=== PATIENT | male | born 1975 | race Caucasian/White ===

== ENCOUNTER 2016-11-02 13:06 | Outpatient (CLI) | payer OTHER ==
--- NOTE | 2016-11-02 15:53 | MRI Report ---
EXAM: MRI CERVICAL SPINE WITHOUT CONTRAST EXAM DATE: 11/02/2016 01:41 PM. CLINICAL HISTORY: 41-year-old man with back pain and upper radicular symptoms. COMPARISONS: 01/22/2015. TECHNIQUE: Multiplanar, multisequence T1-weighted and fluid-sensitive sequences of the cervical spine without contrast. Other: None. FINDINGS: Post surgical: Status post ACDF of C5-C6, new compared to the 2015 MRI. Artifact from interbody cage extends into the central canal. Cage migration into the central canal cannot be excluded. Neurologic Structures: Cervical spinal cord is normal in caliber without definite signal abnormalitie s, but hardware at C5-C6 obscures local evaluation. Alignment: Normal. No scoliosis or spondylolisthesis. Bone Marrow: No gross fractures or bone lesions. No marrow edema. Interspace Levels/Facets: C2-C3: Small disk bulge results in mild narrowing of the central canal, unchanged. No significant mat ral foraminal narrowing. C3-C4: Unremarkable. C4-C5: Unremarkable. C5-C6: Interbody cage is present, new compared to prior exam. Artifact limits evaluation of the centr al canal. No definite neural foraminal narrowing. C6-C7: Small broad-based disk bulge results in mild narrowing of the central canal. Uncovertebral mart nt hypertrophy results in at least mild narrowing of the right neural foramen, but artifact from francisco cent hardware limits evaluation. C7-T1: Unremarkable. Musculature: Normal. No edema or fatty atrophy. Other: The paravertebral and prevertebral soft tissues are normal. IMPRESSION: 1. Status post ACDF of C5-C6, new compared to the 01/22/2015 exam. Artifact from interbody cage exten ds into the central canal. Cage migration and central canal narrowing cannot be excluded. Consider CT to evaluate hardware. 2. Degenerative changes result in the following: - C2-C3: Mild narrowing of the central canal, unchanged from the prior exam. - C6-C7: Mild narrowing of the central canal. At least mild narrowing of the right neural foramen, st able or progressed. [facility] Referring Provider Line: [phone] SITE ID: [id number]
--- NOTE | 2016-11-02 16:08 | MRI Report ---
EXAM: MRI THORACIC SPINE WITHOUT CONTRAST EXAM DATE: 11/02/2016 02:33 PM. CLINICAL HISTORY: 41-year-old man with back pain that radiates up and down his spine. COMPARISONS: 01/22/2015. TECHNIQUE: Multiplanar, multisequence T1-weighted and fluid-sensitive sequences of the thoracic spine from C7 to L1 without contrast. Other: None. FINDINGS: Spinal Cord: Thoracic spinal cord is normal in caliber without definite signal abnormality. Alignment: Normal. No scoliosis or spondylolisthesis. Bone Marrow: No gross fractures or bone lesion. No bone marrow edema. Disk spaces, central canal, and neural foramina: Disk spaces are preserved. No significant disk herni ations. Central canal is widely patent. No significant neural foraminal narrowing. Musculature: Normal. No edema or fatty atrophy. Other: Limited evaluation of the chest is unremarkable. IMPRESSION: 1. Normal MRI of the thoracic spine. No significant central canal or neural foraminal narrowing. [facility] Referring Provider Line: [phone] SITE ID: [id number]
== END 2016-11-02 13:07 | disposition home or self-care (01) ==
LOC: DI 13:06
PROVIDERS: ATTEND Nurse Practitioner Family
DX: M47.892 Other spondylosis, cervical region (principal); M50.31 Other cervical disc degeneration, high cervical region
CPT/HCPCS: 72141; 72146

== ENCOUNTER 2017-02-21 06:56 | Emergency (ER) | payer OTHER ==
[2017-02-21] MEDS ORDERED: MAG HYDROX/AL HYDROX/SIMETH 30 ML UDC PO STA (07:27)
[2017-02-21] MEDS ORDERED: PHENobarb/HYOSCY/ATROPINE/SCOP 5 ML SYRINGE PO STA (07:27)
[2017-02-21] MEDS ORDERED: LIDOCAINE VISCOUS 2% 15 ML UDC MM STA (07:27)
--- NOTE | 2017-02-21 07:29 | ED Physician Documentation ---
PD HPI CHEST PAIN - Stated complaint Stated Complaint: CHEST/LT ARM PX 2ND TO NECK INJECTION - Chief complaint Chief Complaint: Cardiac - History obtained from History obtained from: Patient - History of Present Illness Timing - onset: Yesterday Timing - onset during: Light activity Timing - details: Still present, Waxing and waning Pain level max: 8 Pain level now: 6 Quality: Sharp Location: Substernal, Left chest Radiation: Left upper extremity Associated symptoms: Shortness of air. No: Diaphoresis, Nausea, Vomiting Similar symptoms before: Has not had sx before Recently seen: Clinic (His pain started yesterday shortly after receiving a cortisone injection in his cervical spine.) - Additional information Additional information: The patient is a 41-year-old active [employer] [place] male who presents with sharp substernal chest pain that started yesterday after getting a cortisone injection in his cervical spine for chronic neck pain. The pain intermittently radiates to his left upper extremity. It has been waxing and waning since onset yesterday. At its worst he rates it 8 out of 10 in severity, and currently rates it 6 out of 10 in severity. He reports associated shortness of breath, but denies nausea, vomiting, or diaphoresis. He denies history of similar symptoms in the past. Cardiac risk factors are positive for cigarette smoking, negative for diabetes, hypertension, hyperlipidemia, or family history of early [place]. On further review of systems the patient reports mild headache, but denies fever, cough, or leg pain. Past medical history significant for chronic lower back and neck pain. He is status post cervical discectomy. Review of Systems Constitutional: denies: Fever, Fatigue Nose: denies: Congestion Throat: denies: Sore throat Cardiac: reports: Chest pain / pressure Respiratory: reports: Dyspnea. denies: Cough GI: denies: Abdominal Pain, Nausea, Vomiting : denies: Dysuria Skin: denies: Rash Musculoskeletal: reports: Neck pain (chronically). denies: Extremity pain Neurologic: reports: Headache. denies: Focal weakness, Numbness PD PAST MEDICAL HISTORY - Past Medical History Cardiovascular: None Respiratory: None Neuro: None Endocrine/Autoimmune: None GI: None Musculoskeletal: Other - Past Surgical History Past Surgical History: Yes - Present Medications Home Medications: Ambulatory Orders Medication Instructions Recorded Confirmed Gabapentin [Gralise] 800 each PO TID 02/24/16 02/21/17 Methocarbamol 1,500 mg PO BID 02/24/16 02/21/17 raNITIdine [Zantac] 150 mg PO BID #30 tablet 02/21/17 - Allergies Allergies/Adverse Reactions: Allergies Allergy/AdvReac Type Severity Reaction Status Date / Time No Known Drug Allergies Allergy Verified 02/24/16 07:34 - Social History Does the pt smoke?: Yes Smoking Status: Current every day smoker Does the pt drink ETOH?: Yes Does the pt have substance abuse?: No - Immunizations Immunizations are current?: Yes - POLST Patient has POLST: No PD ED PE NORMAL - Vitals Vital signs reviewed: Yes (normal) - General General: Alert and oriented X 3, Well developed/nourished - HEENT HEENT: Atraumatic, EOMI, Pharynx benign - Neck Neck: Supple, no meningeal sign, No adenopathy, No JVD - Cardiac Cardiac: RRR, No murmur - Respiratory Respiratory: No respiratory distress, Clear bilaterally, Other (No chest wall tenderness.) - Abdomen Abdomen: Soft, No organomegaly, Other (Epigastric discomfort to palpation.) - Back Back: No CVA TTP - Derm Derm: No rash - Extremities Extremities: No edema, No calf tenderness / cord - Neuro Neuro: Alert and oriented X 3, No motor deficit, Normal speech Results - Vitals Vitals: Oxygen O2 Source Room air - EKG (time done) 07:03 Rate: Rate (enter#) (92) Rhythm: NSR Allen: Normal Intervals: Normal MT QRS: Normal Ischemia: ST elevation c/w repol Computer interpretation: Agree with computer - Labs Labs: Laboratory Tests 02/21/17 02/21/17 02/21/17 07:41 07:41 07:41 WBC 25.8 H RBC 5.16 Hgb 15.7 Hct 45.6 MCV 88.3 MCH 30.4 MCHC 34.4 RDW 12.4 Plt Count 262 MPV 7.6 Neut # Not Reportable Lymph # Not Reportable [place] # Not Reportable Eos # Not Reportable Baso # Not Reportable Absolute Nucleated RBC Not Reportable Total Counted 100 Band Neuts % (Manual) 0 Reactive Lymphs % (Man) 8 Abnorm Lymph % (Manual) 0 Nucleated RBC % Not Reportable Neutrophils # (Manual) 20.6 H Lymphocytes # (Manual) 4.1 H Monocytes # (Manual) 1.0 Eosinophils # (Manual) 0.0 Basophils # (Manual) 0.0 Differential Comment MANUAL DIFFERENTIAL WBC Morphology 1+ VACUOLATION Sodium 138 Potassium 4.2 Chloride 101 Carbon Dioxide 26 Anion Gap 11.0 BUN 15 Creatinine 1.0 Estimated GFR (MDRD) 83 L Glucose 132 H Calcium 9.6 Total Bilirubin 0.7 AST 34 ALT 36 Alkaline Phosphatase 40 L Troponin I < 0.04 Total Protein 6.7 Albumin 4.2 Globulin 2.5 Albumin/Globulin Ratio 1.7 Lipase 38 - Rads (name of study) Portable chest Radiology: Prelim report reviewed, EMP read contemporaneously, See rad report ( No acute disease in the chest.) PD MEDICAL DECISION MAKING - ED course Complexity details: reviewed old records, reviewed results, re-evaluated patient , considered differential, d/w patient ED course: The patient's presentation with substernal chest pain is most likely due to gastroesophageal reflux. I do not think cardiac ischemia is the cause of his symptoms, and there is no evidence of pulmonary etiology. He does have a significantly elevated white blood cell count of 25,000, but there is no clinical evidence of infectious process. His white count is without a left shift. Recent medical treatment included cortisone injection in the posterior cervical area. There is no evidence of abscess or cellulitis on examination. Treatment in the emergency department included administration of GI cocktail which improved the patient's symptoms. He is being discharged with a prescription for ranitidine. I discussed with him results of his workup, outpatient treatment and follow-up, as well as potentially worrisome signs or symptoms that should prompt reevaluation in the emergency department. Departure - Departure Disposition: 01 Home, Self Care Clinical Impression: Chest pain Qualifiers: Chest pain type: precordial pain Qualified Code(s): R07.2 - Precordial pain Gastroesophageal reflux disease Qualifiers: Esophagitis presence: esophagitis presence not specified Qualified Code(s): K21.9 - Gastro-esophageal reflux disease without esophagitis Condition: Stable Instructions: ED GERD Follow-Up: MIHIR Whiting [Provider Group] Prescriptions: raNITIdine [Zantac] 150 mg PO BID #30 tablet Comments: Minimize coffee, melissa, and alcohol. Try to stop smoking cigarettes. Take ranitidine twice daily as prescribed. You can use liquid antacid, such as Maalox or Mylanta if needed for recurrent pain. Follow up with your primary physician within 1-2 weeks. Call to schedule appointment. Return to the emergency department if you develop increasing chest pain, shortness of breath, or otherwise worsening symptoms. Discharge Date/Time: 02/21/17 08:58
[2017-02-21] MEDS ORDERED: PHENobarb/HYOSCY/ATROPINE/SCOP 5 ML SYRINGE PO ONE (07:39)
[2017-02-21] MEDS ORDERED: MAG HYDROX/AL HYDROX/SIMETH 30 ML UDC ONE (07:39)
[2017-02-21 07:50] LABS: BASOPHILS % (AUTO) 0.2 %; EOSINOPHILS % (AUTO) 0.1 %; HCT - HEMATOCRIT 45.6 % (42.0-52.0); HGB - HEMOGLOBIN 15.7 g/dL (14.0-18.0); LYMPHOCYTES % (AUTO) 9.4 %; MEAN CORPUSCULAR HEMOGLOBIN 30.4 pg (27.0-31.0); MEAN CORPUSCULAR HGB CONC 34.4 g/dL (32.0-36.0); MEAN CORPUSCULAR VOLUME 88.3 fL (80.0-94.0); MEAN PLATELET VOLUME 7.6 fL (7.4-11.4); MONOCYTES % (AUTO) 6.3 %; RED BLOOD COUNT 5.16 10^6/uL (4.70-6.10); RED CELL DISTRIBUTION WIDTH 12.4 % (12.0-15.0); UNCORRECTED WHITE BLOOD COUNT 25.8 x10^3/uL; WHITE BLOOD COUNT 25.8 x10^3/uL (4.8-10.8)
[2017-02-21 07:55] LABS: BAND NEUTROPHILS % (MANUAL) 0 %
--- NOTE | 2017-02-21 07:56 | XRAY Preliminary Report ---
Exam: XR CHEST 1 VIEW IMPRESSION: 1. No acute disease in the chest. [facility] SITE ID: [id number]
--- NOTE | 2017-02-21 07:58 | XRAY Report ---
EXAM: CHEST RADIOGRAPHY EXAM DATE: 02/21/2017 07:48 AM. CLINICAL HISTORY: Chest pain. COMPARISON: None. TECHNIQUE: 1 view. FINDINGS: Lungs/Pleura: No focal opacities evident. No pleural effusion. No pneumothorax. Mediastinum: Within exam limitations, the cardiomediastinal contour is normal. Other: None. IMPRESSION: 1. No acute disease in the chest. [facility] Referring Provider Line: [phone] SITE ID: [id number]
[2017-02-21 08:03] LABS: ALBUMIN/GLOBULIN RATIO 1.7 (1.0-2.2); BILIRUBIN,TOTAL 0.7 mg/dL (0.2-1.0); CALCIUM 9.6 mg/dL (8.5-10.3); POTASSIUM 4.2 mmol/L (3.5-5.0); TOTAL PROTEIN 6.7 g/dL (6.7-8.2)
[2017-02-21 08:10] LABS: LYMPHOCYTES % (MANUAL) 8 %; NEUTROPHILS % (MANUAL) 80 %; TOTAL CELLS COUNTED 100
[2017-02-21 08:12] LABS: NP AUTO DIFFERENTIAL? YES; NP MAN DIFFERENTIAL? NO
[2017-02-21 08:24] VITALS: BP 129/83
== END 2017-02-21 08:58 | disposition home or self-care (01) ==
LOC: ED 06:56
DX: R07.2 Precordial pain (principal); K21.9 Gastro-esophageal reflux disease without esophagitis; F17.210 Nicotine dependence, cigarettes, uncomplicated
CPT/HCPCS: 36415; 71010; 80053; 83690; 84484; 85025; 93005; 99283; 99284; A9270

== ENCOUNTER 2017-05-22 09:31 | Emergency (ER) | payer OTHER ==
[2017-05-22 09:41] VITALS: BP 131/84
--- NOTE | 2017-05-22 10:00 | ED Physician Documentation ---
History of Present Illness - Stated complaint Stated Complaint: EAR PX - Chief complaint Chief Complaint: Heent - History obtained from History obtained from: Patient - History of Present Illness Timing: Yesterday Improved by: nothing Worsened by: eating, cold air. - Additonal information Additional information: states was doing survival training in the pool yesterday, felt a pop in his ear today. states that there was blood following this. Review of Systems Constitutional: denies: Fever Ears: denies: Loss of hearing Nose: denies: Rhinorrhea / runny nose, Congestion Respiratory: denies: Dyspnea, Cough Skin: denies: Rash Musculoskeletal: denies: Neck pain, Back pain Neurologic: denies: Headache PD PAST MEDICAL HISTORY - Past Medical History Past Medical History: Yes Cardiovascular: None Respiratory: None Neuro: None Endocrine/Autoimmune: None GI: None Musculoskeletal: Chronic back pain - Past Surgical History Past Surgical History: Yes - Present Medications Home Medications: Ambulatory Orders Medication Instructions Recorded Confirmed Gabapentin [Gralise] 800 each PO TID 02/24/16 02/21/17 Methocarbamol 1,500 mg PO BID 02/24/16 02/21/17 - Allergies Allergies/Adverse Reactions: Allergies Allergy/AdvReac Type Severity Reaction Status Date / Time No Known Drug Allergies Allergy Verified 05/22/17 09:41 - Social History Does the pt smoke?: Yes Smoking Status: Current every day smoker Does the pt drink ETOH?: Yes Does the pt have substance abuse?: No - Immunizations Immunizations are current?: Yes - POLST Patient has POLST: No PD ED PE NORMAL - Vitals Vital signs reviewed: Yes - General General: Alert and oriented X 3 - HEENT HEENT: Moist mucous membranes, Other (R TM normal. L TM, small perforation in the inferior aspect. ) - Neck Neck: Supple, no meningeal sign - Cardiac Cardiac: RRR - Respiratory Respiratory: No respiratory distress, Clear bilaterally - Derm Derm: Warm and dry - Neuro Neuro: Alert and oriented X 3 Results - Vitals Vitals: Vital Signs - 24 hr 05/22/17 09:35 Temperature 36.7 C Heart Rate 79 Respiratory 12 Rate Blood Pressure 131/84 H O2 Saturation 99 Oxygen O2 Source Room air PD MEDICAL DECISION MAKING - ED course Complexity details: considered differential, d/w patient ED course: Patient is a 42-year-old gentleman with a slight perforation to the left tympanic membrane. No active bleeding. No evidence of otitis externa. Will continue supportive care and follow-up with his doctor. Patient counseled regarding signs and symptoms for which I believe and urgent re-evaluation would be necessary. Patient with good understanding of and agreement to plan and is comfortable going home at this time This document was made in part using voice recognition software. While efforts are made to proofread this document, sound alike and grammatical errors may occur. Departure - Departure Disposition: 01 Home, Self Care Clinical Impression: Barotrauma Qualifiers: Encounter type: initial encounter Qualified Code(s): T70.29XA - Other effects of high altitude, initial encounter Eardrum rupture Qualifiers: Laterality: right Qualified Code(s): H72.91 - Unspecified perforation of tympanic membrane, right ear Condition: Good Instructions: ED Rupture Eardrum Traumatic Follow-Up: your,doctor in 1 week for recheck [Other] Comments: You have perforated your eardrum today. You need to be rechecked in 1 week with your doctor and may need a referral to ENT for follow up. Return if you worsen. Keep water out of the ear.
== END 2017-05-22 10:10 | disposition home or self-care (01) ==
LOC: ED 09:31
DX: S09.22XA Traumatic rupture of left ear drum, initial encounter (principal); T70.0XXA Otitic barotrauma, initial encounter; Y93.89 Activity, other specified; Y92.34 Swimming pool (public) as the place of occurrence of the external cause; F17.200 Nicotine dependence, unspecified, uncomplicated
CPT/HCPCS: 99282

== ENCOUNTER 2017-06-17 13:46 | Outpatient (CLI) | payer OTHER ==
[~2017-06-17 13:46] MED LIST: GADOPENTETATE DIMEGLUMINE 5 ML VIAL IVP ONE; IOTHALAMATE MEGLUMINE 50 ML VIAL ONE
[2017-06-17] MEDS ORDERED: IOTHALAMATE MEGLUMINE 50 ML VIAL IVP ONE (15:09)
[2017-06-17] MEDS ORDERED: GADOPENTETATE DIMEGLUMINE 5 ML VIAL IVP ONE (15:09)
[2017-06-17] MEDS ORDERED: BUFFERED LIDOCAINE 10 ML SYRINGE IU ONE (15:09)
--- NOTE | 2017-06-17 15:59 | XRAY Report ---
RIGHT SHOULDER INJECTION PRE-MRI: 06/17/2017 HISTORY: Persistent right shoulder pain following ultimate Frisbee injury. PROCEDURE: The nature and goals of the procedure were reviewed with the patient. The risks of infection, bleeding, and mild aching following the procedure were reviewed. Informed consent was obtained. Following fluoroscopic localization, sterile prep, and 1% Xylocaine/sodium bicarbonate anesthesia, a 22-gauge spinal needle was placed into the shoulder joint without difficulty. Utilizing fluoroscopic assessment and ease of injection as a guide, the standard dilute gadolinium solution was instilled without difficulty. The patient tolerated the procedure well and was sent to MRI for imaging. IMPRESSION: SUCCESSFUL INSTILLATION OF INTRAARTICULAR CONTRAST RIGHT SHOULDER. FLUOROSCOPY TIME: 1 MINUTE 31 SECONDS. NUMBER OF IMAGES: 2 INTRAARTICULAR CONTRAST VOLUME: 12 mL. TD: 06/17/2017 15:58 [place]
--- NOTE | 2017-06-18 10:55 | MRI Report ---
EXAM: RIGHT SHOULDER MRI ARTHROGRAM WITH CONTRAST EXAM DATE: 06/17/2017 03:33 PM. CLINICAL HISTORY: Pain in unspecified shoulder. COMPARISON: None. TECHNIQUE: Multiplanar, multisequence T1-weighted and fluid-sensitive sequences of the shoulder after an arthrographic injection of dilute gadolinium, dictated under a separate exam. Other: None. FINDINGS: Acromioclavicular Region: The acromion is type II. Minimal degenerative change at the joint. The tylor coacromial and coracoclavicular ligaments are intact. There is no contrast or fluid in the subacromia l/subdeltoid bursa. Glenohumeral Region: No subluxation. No loose bodies. The articular cartilage is unremarkable. The gl enohumeral ligaments and joint capsule are unremarkable. Bone Marrow: No fracture, marrow edema or bone lesions. Labrum: Partial-thickness undersurface tear at the superior labrum extending anterior and posterior t o the biceps tendon anchor. Deep partial to full-thickness tear throughout the posterior aspect 3 mm paralabral cysts at the posterior superior and posterior inferior aspects. Biceps Tendon: The long head of the biceps tendon and biceps raman are intact. Musculature/Rotator Cuff: Minimal supraspinatus and infraspinatus tendinopathy with shallow bursal santana rface fraying. No discrete tear. Teres minor and scapular spines are intact. No edema or fatty atrophy. Other: The subcutaneous tissues are unremarkable. IMPRESSION: 1. Complex tearing of the labrum including superior component extending anterior to posterior (SLAP t ear) and deep partial to full-thickness component extending throughout the posterior aspect. 2. Minimal supraspinatus and infraspinatus tendinopathy with bursal surface fraying. 3. Minimal acromioclavicular degenerative change. [facility] MUSCULOSKELETAL [facility]Y SECTION Referring Provider Line: [phone] SITE ID: [id number]
== END 2017-06-17 13:47 | disposition home or self-care (01) ==
LOC: DI 13:46
PROVIDERS: ATTEND Family Medicine
DX: S43.431A Superior glenoid labrum lesion of right shoulder, initial encounter (principal); M67.911 Unspecified disorder of synovium and tendon, right shoulder
CPT/HCPCS: 23350; 73222; 77002; Q9961

== ENCOUNTER 2018-02-25 15:01 | Outpatient (CLI) | payer OTHER ==
--- NOTE | 2018-02-26 10:25 | MRI Report ---
Reason: RADICULOPATHY,CERVICAL REGION Procedure Date: 02/25/2018 Accession Number: [id number] / [id number] Procedure: MRI - Cervical Spine W/O CPT Code: FULL RESULT: EXAM: MRI CERVICAL SPINE WITHOUT CONTRAST EXAM DATE: 02/25/2018 03:38 PM. CLINICAL HISTORY: Radiculopathy, cervical REGION. COMPARISONS: MR cervical spine 11/02/2016 TECHNIQUE: Multiplanar, multisequence T1-weighted and fluid-sensitive sequences of the cervical spine without contrast. Other: None. FINDINGS: Neurologic Structures: The visualized posterior fossa structures are unremarkable. No signal abnormality in the visualized spinal cord, however artifact from the hardware at C5-C6 level obscures local evaluation. Alignment: No scoliosis or spondylolisthesis. Bone Marrow: No evidence of acute fracture. Patient is again noted to be status post C5-C6 ACDF. Artifact from the interbody cage again extends into the central canal. Cage migration into the central canal therefore cannot be excluded by MR. Interspace Levels/Facets: C1-C2: Unremarkable. C2-C3: Mild diffuse disk bulge. Mild central canal narrowing and neural foraminal narrowing. No interval change. C3-C4: Mild diffuse disk bulge. Mild central canal narrowing. No foraminal narrowing. No interval change. C4-C5: Interval development of moderate diffuse disk bulge with superimposed central disk extrusion extending craniad approximately 12 mm from the level of the disk. This results in moderate mass-effect on the cord at this level (for example series 601 image 57) and moderate to severe central canal narrowing, which is increased. Moderate right foraminal narrowing, increased since the prior study. No left foraminal narrowing. C5-C6: Postsurgical level, not well evaluated due to artifact. No definite residual central canal or foraminal narrowing. C6-C7: Mild diffuse disk bulge. Mild central canal narrowing mild bilateral neuroforaminal narrowing no interval progression. C7-T1: Unremarkable. Musculature: Normal. No edema or fatty atrophy. Other: The paravertebral and prevertebral soft tissues are normal. IMPRESSION: 1. Compared to the prior study from 11/02/2016, there has been interval progression at C4-C5 level, while the remaining cervical levels are unchanged. The C4-C5 level now demonstrates a moderate diffuse disk bulge with superimposed central disk extrusion extending craniad approximately 12 mm from the level of the disk. This results in moderate mass-effect on the cord at this level (for example series 601 image 57) and moderate to severe central canal narrowing, which is increased. Moderate right foraminal narrowing, increased since the prior study. No left foraminal narrowing. Recommend correlation for right C5 radicular symptoms. 2. Patient is again noted to be status post C5-C6 ACDF. Artifact from the interbody cage again extends into the central canal. Cage migration into the central canal therefore cannot be excluded by MR. 3. C2-C3: Mild central canal narrowing and neural foraminal narrowing. No interval change. 4. C3-C4: Mild central canal narrowing. No foraminal narrowing. No interval change. 5. C5-C6: Postsurgical level, not well evaluated due to artifact. No definite residual central canal or foraminal narrowing. 6. C6-C7: Mild central canal narrowing . Mild bilateral neuroforaminal narrowing. No interval progression. [facility]
== END 2018-02-25 15:02 | disposition home or self-care (01) ==
LOC: DI 15:01
PROVIDERS: ATTEND Family Medicine
DX: M50.221 Other cervical disc displacement at C4-C5 level (principal); M48.02 Spinal stenosis, cervical region; M50.81 Other cervical disc disorders, high cervical region
CPT/HCPCS: 72141

== ENCOUNTER 2018-09-22 14:49 | Emergency (ER) | payer OTHER ==
--- NOTE | 2018-09-22 15:40 | XRAY Report ---
Reason: Finger vs saw Procedure Date: 09/22/2018 Accession Number: [id number] / [id number] Procedure: XR - Finger(s) LT CPT Code: FULL RESULT: EXAM: LEFT FIFTH DIGIT RADIOGRAPHY EXAM DATE: 09/22/2018 03:26 PM. CLINICAL HISTORY: Finger vs saw. COMPARISON: None. TECHNIQUE: 3 views. FINDINGS: Suboptimal positioning and technique. No acute fracture or dislocation identified. Soft tissue swelling the laceration distally. No radiodense foreign body. IMPRESSION: No acute osseus abnormality. [facility]
[2018-09-22] MEDS ORDERED: BUFFERED LIDOCAINE 10 ML SYRINGE SUBQ STA (16:44)
--- NOTE | 2018-09-22 16:46 | ED Physician Documentation ---
PD HPI UPPER EXT INJURY - Stated complaint Stated Complaint: FINGER LAC - Chief complaint Chief Complaint: Laceration - History obtained from History obtained from: Patient - History of Present Illness Location: Left (Right-handed gentleman who is up-to-date on tetanus cut his left pinky with a saws all while working at home just prior to arrival.) Review of Systems Constitutional: reports: Reviewed and negative Throat: reports: Reviewed and negative Cardiac: reports: Reviewed and negative PD PAST MEDICAL HISTORY - Past Medical History Cardiovascular: None Respiratory: None Endocrine/Autoimmune: None GI: None Musculoskeletal: Chronic back pain - Past Surgical History Past Surgical History: Yes - Present Medications Home Medications: Ambulatory Orders Medication Instructions Recorded Confirmed Gabapentin [Gralise] 800 each PO TID 02/24/16 02/21/17 Methocarbamol 1,500 mg PO BID 02/24/16 02/21/17 - Allergies Allergies/Adverse Reactions: Allergies Allergy/AdvReac Type Severity Reaction Status Date / Time No Known Drug Allergies Allergy Verified 09/22/18 15:03 - Social History Does the pt smoke?: Yes Smoking Status: Current every day smoker Does the pt drink ETOH?: Yes Does the pt have substance abuse?: No - Immunizations Immunizations are current?: Yes - POLST Patient has POLST: No PD ED PE NORMAL - Vitals Vital signs reviewed: Yes - General General: Alert and oriented X 3, No acute distress - Extremities Extremities: Other (He has a 1 cm laceration on the left pinky just proximal to the nailbed on the ulnar side without distal neurovascular compromise.) - Neuro Neuro: Alert and oriented X 3, Normal speech - Psych Psych: Normal mood, Normal affect Results - Vitals Vitals: Vital Signs - 24 hr 09/22/18 15:01 Temperature 36.9 C Heart Rate 82 Respiratory 18 Rate Blood Pressure 120/73 O2 Saturation 100 Oxygen O2 Source Room air - Rads (name of study) L 5th finger Radiology: EMP read contemporaneously (NAD) Procedures - Laceration (location) L 5th finger Length in cm: 1 Wound type: Linear Neurovascular status: Sensory intact, Motor intact, Vascular intact Tendon involvement: Tendon intact Anesthesia: Lidocaine 1%, With bicarb Wound Preparation: Irrigated copiously NS Skin layer closure: Nylon, Interrupted, Size #-0 - enter number (4-0), Sutures - enter # (3) Other: Tetanus UTD Complexity: Simple Departure - Departure Disposition: 01 Home, Self Care Clinical Impression: Laceration Condition: Good Record reviewed to determine appropriate education?: Yes Health Concerns: laceration Plan of Treatment: 2 sutures Come back for any signs of infection which would include: Redness, swelling, drainage, increased pain, or fevers. You can wash it soap and water. Keep it covered and moist with bacitracin ointment which is available over the counter; avoid neosporin. Follow-up with your physician in 14 days for suture removal. Care Goals: wound care Assessment: as above Instructions: ED Laceration Hand Comments: Come back for any signs of infection which would include: Redness, swelling, drainage, increased pain, or fevers. You can wash it soap and water. Keep it covered and moist with bacitracin ointment which is available over the counter; avoid neosporin. Follow-up with your physician in 14 days for suture removal.
[2018-09-22 17:14] VITALS: BP 115/79
== END 2018-09-22 17:20 | disposition home or self-care (01) ==
LOC: ED 14:49
DX: S61.217A Laceration without foreign body of left little finger without damage to nail, initial encounter (principal); W27.8XXA Contact with other nonpowered hand tool, initial encounter; F17.200 Nicotine dependence, unspecified, uncomplicated
CPT/HCPCS: 12001; 73140; 99283

== ENCOUNTER 2018-10-24 16:17 | Emergency (ER) | payer OTHER ==
--- NOTE | 2018-10-24 19:32 | ED Physician Documentation ---
History of Present Illness - Stated complaint Stated Complaint: R ARM NUMBNESS/L SHLDR PX - Chief complaint Chief Complaint: General - History obtained from History obtained from: Patient - Additonal information Additional information: This a 43-year-old man who presents with complaints of 5 days ago he just suddenly went into "convulsions" had a quick cold tremor as he was outside working. He went and laid down that he got up and was feeling better so he went back outside he was down on one knee working when he just fell over to the side and hit the left side of his head on the ground. He did not get knocked out. Went in and took some aspirin and ibuprofen but since that time he just has not felt right his thought process is "not been as fluid" as normal. And he developed excruciating pain in his right hand. He had pre-existing numbness to his right ring finger tip due to prior surgery and nerve impingement. Now he feels like the entire right ring finger and middle finger are numb. He is having some pain in his neck but has had a prior C5-6 discectomy and other nerve disc bulges diagnosed previously. He is been nauseous and vomited 4 days ago he says is been eating since then. He has not felt dizzy or passed out but he has chronic tinnitus and he has had a slight increase in the past 3 weeks and his typical ocular migraines. Patient complains of abdominal pain, Shortness of breath, cough productive of phlegm and restless legs. He has no fever. The patient was seen by primary care provider and diagnosed with some bronchitis prescribed an inhaler about a month ago has been using it twice a day and continues wheezing. Review of Systems Constitutional: denies: Fever Eyes: reports: Other (Visual changes that he reports is ocular migraines) Ears: reports: Tinnitus/ringing Nose: denies: Congestion Throat: denies: Sore throat Respiratory: reports: Dyspnea, Cough, Wheezing GI: reports: Abdominal Pain, Nausea, Vomiting : denies: Dysuria Skin: denies: Rash Musculoskeletal: reports: Neck pain, Extremity pain Neurologic: reports: Numbness, Head injury. denies: LOC Endocrine: reports: Other (Not diabetic) PD PAST MEDICAL HISTORY - Past Medical History Cardiovascular: None Respiratory: None Neuro: None Endocrine/Autoimmune: None GI: None HEENT: None Psych: None Musculoskeletal: Chronic back pain Derm: None - Past Surgical History Past Surgical History: Yes - Present Medications Home Medications: Ambulatory Orders Medication Instructions Recorded Confirmed Gabapentin [Gralise] 800 each PO TID 02/24/16 02/21/17 Methocarbamol 1,500 mg PO BID 02/24/16 02/21/17 Azithromycin [Zithromax] 0 mg PO DAILY #6 tablet 10/25/18 - Allergies Allergies/Adverse Reactions: Allergies Allergy/AdvReac Type Severity Reaction Status Date / Time No Known Drug Allergies Allergy Verified 10/24/18 16:39 - Social History Does the pt smoke?: Yes Smoking Status: Current every day smoker Does the pt drink ETOH?: Yes Does the pt have substance abuse?: No - Immunizations Immunizations are current?: Yes - POLST Patient has POLST: No PD ED PE NORMAL - Vitals Vital signs reviewed: Yes - General General: Alert and oriented X 3, No acute distress, Well developed/nourished - HEENT HEENT: Atraumatic, PERRL, EOMI, Moist mucous membranes, Pharynx benign - Neck Neck: Supple, no meningeal sign, No adenopathy, Thyroid normal - Cardiac Cardiac: RRR, No murmur - Respiratory Respiratory: No respiratory distress, Other (Patient has wheezing in both lung mcnair.) - Abdomen Abdomen: Normal bowel sounds, Soft, Non tender - Derm Derm: Normal color, No rash - Extremities Extremities: No deformity, No edema - Neuro Neuro: Alert and oriented X 3, 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 He has 5 out of 5 bicep and concreting supervisor strength and 1+ bicep reflexes bilaterally.) - Psych Psych: Normal mood, Normal affect Results - Vitals Vitals: Vital Signs - 24 hr 10/24/18 10/24/18 10/24/18 16:34 19:08 19:15 Temperature 36.8 C Heart Rate 75 74 Respiratory 16 14 14 Rate Blood Pressure 121/78 117/75 O2 Saturation 99 98 10/24/18 10/24/18 10/24/18 19:16 19:52 20:19 Temperature 37 C Heart Rate Respiratory 14 17 Rate Blood Pressure O2 Saturation 08/09/19 08/09/19 08/09/19 20:27 20:35 23:07 Temperature Heart Rate Respiratory 17 17 16 Rate Blood Pressure O2 Saturation 10/24/18 23:34 Temperature 37.2 C Heart Rate 55 L Respiratory 16 Rate Blood Pressure 106/67 O2 Saturation 100 Oxygen O2 Source Room air PD MEDICAL DECISION MAKING - ED course ED course: Patient was sleeping soundly when I went to examine him. He aroused easily. Sent for head CT which was negative and chest x-ray we did she did not show pneumonia. The patient subsequently slept throughout his entire emergency department stay. He will be discharged with prescription for Z-Carlos and instructions to follow-up with his primary care provider if not improving. We discussed that he may need further imaging on his neck with MRI but that is not something that would be done through the emergency department at this time. Departure - Departure Disposition: 01 Home, Self Care Clinical Impression: Bronchitis Hand paresthesia Qualifiers: Laterality: bilateral Qualified Code(s): R20.2 - Paresthesia of skin Condition: Good Instructions: ED Upper Resp Infec Abx Tx Follow-Up: doctor, your [Other] [facility] [Provider Group] Prescriptions: Azithromycin [Zithromax] 0 mg PO DAILY #6 tablet Comments: Take the Z-Carlos as prescribed. Continue to use your inhaler as needed for shortness of breath. Follow-up with your primary care provider if your neck pain or numbness in the hands persist.
--- NOTE | 2018-10-24 20:54 | XRAY Report ---
Reason: cough Procedure Date: 10/24/2018 Accession Number: [id number] / [id number] Procedure: XR - Chest 2 View X-Ray CPT Code: 73849 FULL RESULT: EXAM: CHEST RADIOGRAPHY EXAM DATE: 10/24/2018 08:37 PM. CLINICAL HISTORY: Nonproductive cough and left-sided chest pain for 6 days. COMPARISON: CHEST 1 VIEW 02/21/2017 7:30 AM. TECHNIQUE: 2 views. FINDINGS: LUNGS: The lungs are clear. PLEURA: No significant pleural effusion. No clinically significant pneumothorax. MEDIASTINUM: The cardiomediastinal silhouette is unremarkable. BONES: No displaced acute fracture. No suspicious osseous lesions. Partially imaged cervical spinal diskectomy hardware. IMPRESSION: No acute disease. Please note, that bronchitis can be occult on chest x-ray. RADIA
--- NOTE | 2018-10-24 20:59 | CT Report ---
Reason: head injury with vomiting Procedure Date: 10/24/2018 Accession Number: [id number] / [id number] Procedure: CT - HEAD WO CPT Code: FULL RESULT: EXAM: CT HEAD WITHOUT CONTRAST COMPARISON: CERVICAL SPINE W/O 02/25/2018 3:11 PM. CLINICAL HISTORY: Head injury with vomiting. TECHNIQUE: Axial CT images were obtained from the foramen magnum to the vertex without contrast In accordance with CT protocol optimization, one or more of the following dose reduction techniques were utilized for this exam: automated exposure control, adjustment of mA and/or KV based on patient size, or use of iterative reconstructive technique. FINDINGS: No intra-intracranial hemorrhage. No masses. Ventricular size is normal. No dense vessels. Mastoids are clear. Middle ears are clear. Temporomandibular joints are normally located. No unexpected intra-axial or extra-axial fluid collections. IMPRESSION: No intracranial hemorrhage, mass, or other discrete acute intracranial process identified.
[2018-10-24 23:35] VITALS: BP 106/67
== END 2018-10-25 00:26 | disposition home or self-care (01) ==
LOC: ED 16:17
DX: J40 Bronchitis, not specified as acute or chronic (principal); R20.2 Paresthesia of skin; M79.641 Pain in right hand; S09.90XA Unspecified injury of head, initial encounter; W18.30XA Fall on same level, unspecified, initial encounter; F17.200 Nicotine dependence, unspecified, uncomplicated
CPT/HCPCS: 70450; 71046; 99284

== ENCOUNTER 2018-11-13 16:01 | Emergency (ER) | payer OTHER ==
[2018-11-13 16:10] VITALS: BP 126/59
[2018-11-13] MEDS ORDERED: LIDOCAINE VISCOUS 2% 15 ML UDC MM STA (16:21)
[2018-11-13] MEDS ORDERED: ONDANSETRON 4 MG/2 ML VIAL IVP STA (16:21)
[2018-11-13] MEDS ORDERED: MAG HYDROX/AL HYDROX/SIMETH 30 ML UDC PO STA (16:21)
[2018-11-13] MEDS ORDERED: SODIUM CHLORIDE 0.9% 1,000 ML IV ONE (16:21)
[2018-11-13 16:35] LABS: BASOPHILS # (AUTO) 0.1 10^3/uL (0.0-0.1); BASOPHILS % (AUTO) 0.6 %; EOSINOPHILS # (AUTO) 0.4 10^3/uL (0.0-0.7); EOSINOPHILS % (AUTO) 3.8 %; HGB - HEMOGLOBIN 14.2 g/dL (14.0-18.0); LYMPHOCYTES # (AUTO) 3.2 10^3/uL (1.5-3.5); LYMPHOCYTES % (AUTO) 29.7 %; MEAN CORPUSCULAR HEMOGLOBIN 29.8 pg (27.0-31.0); MEAN CORPUSCULAR HGB CONC 33.3 g/dL (32.0-36.0); MEAN CORPUSCULAR VOLUME 89.7 fL (80.0-94.0); MEAN PLATELET VOLUME 8.7 fL (7.4-11.4); MONOCYTES % (AUTO) 9.3 %; NEUTROPHILS % (AUTO) 56.2 %; PLT - PLATELET COUNT 294 10^3/uL (130-450); RED BLOOD COUNT 4.76 10^6/uL (4.70-6.10); RED CELL DISTRIBUTION WIDTH 12.6 % (12.0-15.0); WHITE BLOOD COUNT 10.6 x10^3/uL (4.8-10.8)
[2018-11-13 16:49] LABS: ALBUMIN 4.1 g/dL (3.2-5.5); ALBUMIN/GLOBULIN RATIO 1.5 (1.0-2.2); BILIRUBIN,TOTAL 0.7 mg/dL (0.2-1.0); CALCIUM 9.5 mg/dL (8.5-10.3); CREATININE 1.1 mg/dL (0.6-1.2); TOTAL PROTEIN 6.8 g/dL (6.7-8.2)
--- NOTE | 2018-11-13 17:18 | ED Physician Documentation ---
PD HPI ABD PAIN - Stated complaint Stated Complaint: ABD PX/BLOOD IN STOOL/NAUSEA - Chief complaint Chief Complaint: Abd Pain - History obtained from History obtained from: Patient - History of Present Illness Timing - onset: How many hours ago (1) Timing - duration: Hours (1) Timing - details: Still present Quality: Pain Location: Other (Left mid abdomen.) Associated symptoms: Nausea, Hematochezia (Blood on toilet paper after bowel movement.). No: Vomiting Similar symptoms before: Has not had sx before - Additional information Additional information: The patient is a 43-year-old male who presents with left mid abdominal pain that started about one hour prior to arrival. He reports associated nausea, without vomiting. He denies diarrhea, dysuria, or fever. He also reports bright red blood on the toilet paper when he wiped after a bowel movement. He last ate at 10 AM. He reports drinking excessive coffee this morning. He denies history of similar symptoms in the past, except for a history of anal fissure. Review of Systems Constitutional: denies: Fever Nose: denies: Congestion Throat: denies: Sore throat Cardiac: denies: Chest pain / pressure Respiratory: denies: Dyspnea, Cough GI: reports: Abdominal Pain, Nausea, Bloody / black stool. denies: Vomiting, Diarrhea : denies: Dysuria Musculoskeletal: denies: Back pain Neurologic: denies: Headache PD PAST MEDICAL HISTORY - Past Medical History Cardiovascular: None Respiratory: None Neuro: None Endocrine/Autoimmune: None GI: None HEENT: None Psych: None Musculoskeletal: Chronic back pain Derm: None - Past Surgical History Past Surgical History: Yes - Present Medications Home Medications: Ambulatory Orders Medication Instructions Recorded Confirmed Gabapentin [Gralise] 800 each PO TID 02/24/16 02/21/17 FLUoxetine [PROzac] 20 mg PO DAILY 11/13/18 11/13/18 Hydrocortisone Acetate [Anucort-Hc] 25 mg RC BID #10 supp.rect 11/13/18 Varenicline Tartrate [Chantix] 1 mg PO 11/13/18 11/13/18 raNITIdine [Zantac] 150 mg PO BID #30 tablet 11/13/18 - Allergies Allergies/Adverse Reactions: Allergies Allergy/AdvReac Type Severity Reaction Status Date / Time No Known Drug Allergies Allergy Verified 08/29/19 16:09 - Social History Does the pt smoke?: Yes Smoking Status: Current every day smoker Does the pt drink ETOH?: Yes Does the pt have substance abuse?: No - Immunizations Immunizations are current?: Yes - POLST Patient has POLST: No PD ED PE NORMAL - Vitals Vital signs reviewed: Yes (normal) - General General: Alert and oriented X 3, Well developed/nourished - HEENT HEENT: Atraumatic, Pharynx benign - Neck Neck: Supple, no meningeal sign, No adenopathy - Cardiac Cardiac: RRR - Respiratory Respiratory: No respiratory distress, Clear bilaterally - Abdomen Abdomen: Normal bowel sounds, Soft, Other (Mild tenderness to palpation in the left upper quadrant, without rebound tenderness or guarding.) - Back Back: No CVA TTP - Derm Derm: No rash - Extremities Extremities: No edema, No calf tenderness / cord - Neuro Neuro: Alert and oriented X 3, No motor deficit, Normal speech PD ED PE EXPANDED - Rectal Rectal: Heme Occult Neg - QC+, Normal Tone. No: Hemorrhoid, Fissure Results - Vitals Vitals: Oxygen O2 Source Room air - Labs Labs: Laboratory Tests 11/13/18 11/13/18 16:27 16:27 WBC 10.6 RBC 4.76 Hgb 14.2 Hct 42.7 MCV 89.7 MCH 29.8 MCHC 33.3 RDW 12.6 Plt Count 294 MPV 8.7 Neut # (Auto) 6.0 Lymph # (Auto) 3.2 Hayes # (Auto) 1.0 Eos # (Auto) 0.4 Baso # (Auto) 0.1 Absolute Nucleated RBC 0.00 Nucleated RBC % 0.0 Sodium 139 Potassium 4.0 Chloride 100 L Carbon Dioxide 30 Anion Gap 9.0 BUN 21 H Creatinine 1.1 Estimated GFR (MDRD) 74 L Glucose 90 Calcium 9.5 Total Bilirubin 0.7 AST 54 H ALT 39 Alkaline Phosphatase 37 L Total Protein 6.8 Albumin 4.1 Globulin 2.7 Albumin/Globulin Ratio 1.5 Lipase 71 H PD MEDICAL DECISION MAKING - ED course Complexity details: reviewed old records, reviewed results, re-evaluated patient, considered differential, d/w patient, d/w family ED course: The patient's presentation is most consistent with gastritis. This is most likely related to excessive coffee intake, although there may be other exacerbating factors such as alcohol. CBC is normal with a white count of 10.6. Chemistry panel reveals slightly elevated BUN to creatinine ratio of 21 and 1.1. His lipase is also slightly elevated at 71. Pancreatitis is a consideration, but gastritis is more likely. His clinical presentation does not suggest diverticulitis or biliary colic, or bowel obstruction. The bright red blood he reports having on his toilet paper is most likely due to internal hemorrhoid. His rectal examination reveals no evidence of external hemorrhoid, and his stool is brown, formed, and heme-negative. Treatment in the emergency department included administration of GI cocktail, which relieved his pain, but not his nausea. Normal saline 1 L and Zofran 4 mg were administered IV. With resolution of his symptoms, he demonstrated ability to drink fluids without recurrent pain or nausea. He is being discharged with a prescription for ranitidine, as well as for Anusol HC. I discussed with him and his the diagnosis, outpatient treatment and follow-up, as well as potentially worrisome signs or symptoms that should prompt reevaluation in the emergency department. Departure - Departure Disposition: 01 Home, Self Care Clinical Impression: Internal hemorrhoid Gastritis Qualifiers: Gastritis type: unspecified gastritis Chronicity: acute Gastritis bleeding: presence of bleeding unspecified Qualified Code(s): K29.00 - Acute gastritis without bleeding Condition: Stable Instructions: ED Hemorrhoids, ED PUD Vs Gastritis Follow-Up: [facility] [Provider Group] Prescriptions: Hydrocortisone Acetate [Anucort-Hc] 25 mg RC BID #10 supp.rect raNITIdine [Zantac] 150 mg PO BID #30 tablet Comments: Minimize coffee, melissa, alcohol. Take ranitidine twice daily as prescribed. You can use liquid antacid, such as Maalox or Mylanta if you develop recurrent symptoms. You can use Anusol HC as prescribed for hemorrhoids. Follow-up with your primary physician within 2 weeks. Call to schedule an appointment. Return to the emergency department if you develop increasing abdominal pain, persistent vomiting, increasing rectal bleeding, or otherwise worsening symptoms. Discharge Date/Time: 11/13/18 17:29
== END 2018-11-13 17:29 | disposition home or self-care (01) ==
LOC: ED 16:01
DX: K29.00 Acute gastritis without bleeding (principal); K64.8 Other hemorrhoids; F17.200 Nicotine dependence, unspecified, uncomplicated
CPT/HCPCS: 36415; 80053; 83690; 85025; 96374; 99283; 99284; A9270

== ENCOUNTER 2018-12-15 07:56 | Outpatient (CLI) | payer OTHER ==
--- NOTE | 2018-12-15 10:56 | MRI Report ---
Reason: CERVICALGIA Procedure Date: 12/15/2018 Accession Number: [id number] / [id number] Procedure: MRI - Cervical Spine W/O CPT Code: FULL RESULT: EXAM: MRI CERVICAL SPINE WITHOUT CONTRAST EXAM DATE: 12/15/2018 09:03 AM. CLINICAL HISTORY: Cervicalgia. COMPARISONS: CERVICAL SPINE W/O 02/25/2018 3:11 PM. CERVICAL SPINE W/O 11/02/2016 1:40 PM. CERVICAL SPINE W/O 01/22/2015 3:10 PM. TECHNIQUE: Multiplanar, multisequence T1-weighted and fluid-sensitive sequences of the cervical spine without contrast. Other: None. FINDINGS: Neurologic Structures: The visualized posterior fossa structures are unremarkable. No signal abnormality in the visualized spinal cord. Alignment: No scoliosis or spondylolisthesis. Bone Marrow: No gross fractures or bone lesions. No marrow edema. Interspace Levels/Facets: C1-C2: Unremarkable. C2-C3: Unremarkable. C3-C4: Unremarkable. C4-C5: Posterior 2 mm disk protrusion. Negative for foraminal stenosis. Interval resorption or resolution of C4-C5 disk herniation with moderate compression cervical cord and moderate to severe spinal canal stenosis C4-C5 described on the MRI 02/25/2018. Mild disk degeneration. C5-C6: Artifact from disk prosthesis. Negative for spinal canal stenosis or foraminal stenosis. C6-C7: Negative for central spinal canal stenosis. Posterior 2 mm disk protrusion. Mild left foraminal stenosis from 2 mm foraminal disk protrusion osteophyte complex. Moderate right foraminal stenosis from a foraminal disk herniation/protrusion (image 10 series 301). Negative for interval change. C7-T1: Unremarkable. Musculature: Normal. No edema or fatty atrophy. Other: The paravertebral and prevertebral soft tissues are normal. IMPRESSION: 1. The spinal cord from the cervical medullary junction to T2 is negative for signal abnormality. 2. Interval resolution of disk herniation C4-C5 with moderate compression of the cervical cord and moderate to severe spinal canal stenosis C4-C5 interspace seen on the MRI cervical spine 02/25/2018. There is 2 mm posterior disk protrusion C4-C5 with mild central spinal canal stenosis. 3. Prosthesis C5-C6 interspace producing artifact. 4. Moderate right C6-C7 foraminal stenosis from foraminal disk protrusion/herniation. RADIA
== END 2018-12-15 07:57 | disposition home or self-care (01) ==
LOC: DI 07:56
PROVIDERS: ATTEND Orthopaedic Surgery
DX: M50.221 Other cervical disc displacement at C4-C5 level (principal); M48.02 Spinal stenosis, cervical region
CPT/HCPCS: 72141

== ENCOUNTER 2019-01-19 09:00 | Outpatient (CLI) | payer OTHER ==
[2019-01-19] MEDS ORDERED: GADOBUTROL 10 MMOL/10 ML VIAL IV STA (09:39)
[2019-01-19] MEDS ORDERED: BUFFERED LIDOCAINE 10 ML SYRINGE IU ONE (09:39)
[2019-01-19] MEDS ORDERED: IOTHALAMATE MEGLUMINE 50 ML VIAL IVP ONE (09:39)
--- NOTE | 2019-01-19 10:12 | XRAY Report ---
Reason: ACUTE PAIN OF WILMA SHOULDERS, WILMA SUPRASPINATUS RUBÉN Procedure Date: 01/19/2019 Accession Number: [id number] / [id number] Procedure: FL - Arthrogram Needle Placement CPT Code: Final Report FULL RESULT: EXAM: RIGHT SHOULDER ARTHROGRAPHIC INJECTION WITH FLUOROSCOPIC GUIDANCE EXAM DATE: 01/19/2019 09:38 AM. CLINICAL HISTORY: Acute bilateral shoulder pain, bilateral supraspinatus pain. COMPARISON: None. TECHNIQUE: The risks, benefits, and alternatives of the procedure were discussed with the patient. All questions were answered. Written and verbal consent were obtained. The glenohumeral joint was marked under fluoroscopy and prepped and draped in a sterile manner. Local anesthesia was performed with 1% lidocaine. A 22-gauge needle was then inserted into the glenohumeral joint. 10 mL of a solution containing 25% 1% lidocaine, 25% iodinated contrast, and a 1:200 dilution of gadolinium contrast in sterile saline was then injected. The needle was removed without immediate complication. Other: None. Fluoroscopy Time: 0.1 minutes. Number of Images: 3. FINDINGS: Bones and joints: No fracture or subluxation. Injection: Fluoroscopic images demonstrate needle placement and contrast in the glenohumeral joint. No contrast extravasation outside of the glenohumeral joint. IMPRESSION: Successful fluoroscopically guided arthrographic injection of the shoulder. RADIA
--- NOTE | 2019-01-19 11:42 | MRI Report ---
Reason: ACUTE PAIN OF WILMA SHOULDERS, WILMA SUPRASPINATUS RUBÉN Procedure Date: 01/19/2019 Accession Number: [id number] / [id number] Procedure: MRI - Arthrogram Shoulder RT CPT Code: Final Report FULL RESULT: EXAM: RIGHT SHOULDER MRI ARTHROGRAM WITH CONTRAST EXAM DATE: 01/19/2019 10:37 AM. CLINICAL HISTORY: Right shoulder pain. COMPARISON: ARTHROGRAM SHOULDER RT 06/17/2017 3:03 PM. TECHNIQUE: Multiplanar, multisequence T1-weighted and fluid-sensitive sequences of the shoulder after an arthrographic injection of dilute gadolinium, dictated under a separate exam. Other: None. FINDINGS: Acromioclavicular Region: The acromion is type I. There are magnetic susceptibility artifacts adjacent to the anterior aspect of the AC joint which is new since the previous study. The coracoacromial and coracoclavicular ligaments are intact. There is no contrast or fluid in the subacromial/subdeltoid bursa. Glenohumeral Region: No subluxation. No loose bodies. The articular cartilage is unremarkable. The glenohumeral ligaments and joint capsule are unremarkable. Bone Marrow: Postoperative changes at the proximal humeral metadiaphysis from previous biceps tenodesis. No acute fracture or bone lesions. Labrum: There is blunting at the superior aspect of the labrum which may be due to degeneration or postoperative change. No labral tear. Biceps Tendon: The visualized portions of the long head biceps tendon are thin, but intact. Musculature/Rotator Cuff: The subscapularis, supraspinatus, infraspinatus, and teres minor tendons are intact. No edema or fatty atrophy. Other: The subcutaneous tissues are unremarkable. IMPRESSION: 1. Blunting at the superior aspect of the labrum which may be due to degeneration or postoperative change. 2. Previous biceps tenodesis. 3. No rotator cuff or labral tear. RADIA
== END 2019-01-19 09:01 | disposition home or self-care (01) ==
LOC: DI 09:00
PROVIDERS: ATTEND Orthopaedic Surgery
DX: M25.511 Pain in right shoulder (principal); M25.512 Pain in left shoulder
CPT/HCPCS: 77002

== ENCOUNTER 2019-03-27 08:50 | Outpatient (CLI) | payer OTHER ==
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
== END 2019-03-27 08:51 | disposition home or self-care (01) ==
LOC: DI 08:50
PROVIDERS: ATTEND Internal Medicine
DX: M75.112 Incomplete rotator cuff tear or rupture of left shoulder, not specified as traumatic (principal); S43.432A Superior glenoid labrum lesion of left shoulder, initial encounter; M75.52 Bursitis of left shoulder; M19.012 Primary osteoarthritis, left shoulder; M67.922 Unspecified disorder of synovium and tendon, left upper arm

== ENCOUNTER 2020-11-12 07:26 | Outpatient (CLI) | payer OTHER ==
--- NOTE | 2020-11-12 09:26 | Ultrasound Report ---
PROCEDURE: Testicle INDICATIONS: LEFT TESTICULAR MASS TECHNIQUE: Real-time scanning was performed of the scrotum and testicles, with image documentation. Color and p ulse Doppler interrogation was performed of both testicles. COMPARISON: None. FINDINGS: Right: Testicle is normal in size at 4.3 x 1.9 x 2.8 cm, and homogenous in echotexture. Epididymis is normal in overall size and morphology. There are two 3 mm right epididymal head cysts. No hydroce le or varicoceles. Overlying scrotal skin is normal in thickness. Left: Testicle is normal in size at 4.1 x 2.0 x 2.8 cm, and homogeneous in echotexture. Epididymis is normal in overall size and morphology. 4 mm left epididymal head cyst. No hydrocele or varicocele s. Overlying scrotal skin is normal in thickness. Doppler: Color and pulse Doppler demonstrate normal and symmetric arterial flow in both testicles. IMPRESSION: Bilateral subcentimeter epididymal head cysts. Reviewed by: Remington Hankins on 11/12/2020 8:24 AM MIS Approved by: Remington Hankins on 11/12/2020 8:24 AM MIS Station ID: [id number]
== END 2020-11-12 07:27 | disposition home or self-care (01) ==
LOC: DI 07:26
DX: N50.3 Cyst of epididymis (principal)

== ENCOUNTER 2020-11-16 14:31 | Outpatient (CLI) | payer OTHER ==
--- NOTE | 2020-11-16 16:02 | MRI Report ---
PROCEDURE: Cervical Spine W/O INDICATIONS: BILATERAL HAND NUMBNESS TECHNIQUE: Noncontrast sagittal T1 spin echo and T2 fast spin echo, sagittal STIR, foraminal oblique sagittal T2 fast spin echo, and axial gradient echo or T2 fast spin echo through the cervical spine. COMPARISON: 12/15/2018, 02/25/2018 FINDINGS: Image quality: There is artifact associated with the metallic hardware. Alignment and Curvature: There is normal bony alignment. Bone Marrow: Marrow demonstrates normal overall signal. Spinal Cord: Visualized spinal cord has normal size and signal. No cerebellar tonsillar herniation. Paraspinous Soft Tissues: No paravertebral masses. Prevertebral soft tissues are normal in thicknes s. C2-C3: The disc height is well-preserved. There is loss of disc signal seen. Mild disc osteophyte complex is seen. Mild facet hypertrophy is seen. Moderate bilateral neural foraminal narrowing is seen. Mild central canal narrowing is seen. These imaging findings are similar to the images of the prior examination. C3-C4: The disc height is well-preserved. There is loss of disc signal seen. Mild disc osteophyte complex is seen. There is a mild central disc osteophyte protrusion seen. There is moderate right-si ded and mild left-sided neuroforaminal narrowing seen. Mild to moderate central canal narrowing is se en. These imaging findings are similar to the images of the prior examination. C4-C5: Moderate loss of disc height and signal are seen. Moderate disc osteophyte complex is seen, w hich is eccentric to the right. Mild to moderate facet hypertrophy is seen. There is moderate right-s ided and mild left-sided neuroforaminal narrowing seen. Mild central canal narrowing is seen. Thes e imaging findings are similar to the images of the prior examination. C5-C6: Postoperative changes are seen at this level, with associated susceptibility artifact. Evalua tion of this level is suboptimal. There is believed to be mild bilateral neuroforaminal narrowing. Li brian mild central canal narrowing. C6-C7: Mild to moderate loss of disc height and disc signal can be seen. Moderate disc osteophyte c omplex is seen. Mild facet hypertrophy is seen. At least moderate bilateral neuroforaminal narrow ing can be seen. Likely similar to the prior. C7-T1: Normal in appearance. IMPRESSION: C5-6 postoperative hardware, with associated susceptibility artifact. Multiple levels of degenerative change are seen, which are similar to the prior 2019 images. Reviewed by: Andres Cabrera MD on 11/16/2020 3:00 PM MIS Approved by: Andres Cabrera MD on 11/16/2020 3:00 PM MIS Station ID: [id number]
== END 2020-11-16 14:32 | disposition home or self-care (01) ==
LOC: DI 14:31
PROVIDERS: ATTEND Student in an Organized Health Care Education/Training Program
DX: R20.0 Anesthesia of skin (principal); M47.812 Spondylosis without myelopathy or radiculopathy, cervical region; M50.321 Other cervical disc degeneration at C4-C5 level; M48.02 Spinal stenosis, cervical region